=== PATIENT | female | born 1980 | race Caucasian/White ===

== ENCOUNTER 2019-06-25 06:02 | Observation (INO) | payer MEDICAID, OTHER, SELFPAY ==
[2019-06-25 07:29] LABS: Basophils # (Auto) 0.1 K/mm3 (0.0-0.1); Basophils % (Auto) 0.3 % (0.0-1.8); Eosinophils # (Auto) 0.3 K/mm3 (0.0-0.4); Eosinophils % (Auto) 1.9 % (0.0-4.3); Hematocrit 40.9 % (30.3-42.9); Hemoglobin 13.8 gm/dl (10.1-14.3); Lymphocytes # (Auto) 1.2 K/mm3 (1.2-5.4); Lymphocytes % (Auto) 7.3 % (13.4-35.0); Mean Corpuscular HGB Conc 34 % (30-34); Mean Corpuscular Volume 94 fl (79-97); Monocytes # (Auto) 1.2 K/mm3 (0.0-0.8); Monocytes % (Auto) 7.7 % (0.0-7.3); Platelet Count 209 K/mm3 (140-440); Red Blood Count 4.36 M/mm3 (3.65-5.03); Red Cell Distribution Width 13.2 % (13.2-15.2)
[2019-06-25] MEDS ORDERED: SODIUM CHLORIDE 0.9% 1000 ML 1,000 ML IV ONE (07:48)
[2019-06-25] MEDS ORDERED: MORPHINE 4 MG/1 ML INJ IV ONE ×2 (07:48→11:24)
[2019-06-25] MEDS ORDERED: ONDANSETRON 4 MG/2 ML INJ IV ONE (07:48)
[2019-06-25 07:50] LABS: Alanine Aminotransferase 16 units/L (7-56); Albumin 4.2 g/dL (3.9-5); BUN/Creatinine Ratio 16; Blood Urea Nitrogen 8 mg/dL (7-17); Calcium 8.8 mg/dL (8.4-10.2); Hemolysis Index 17
[2019-06-25 08:01] LABS: Bacteria,Urine 1+ /HPF (Negative); Bilirubin,Urine NEG (Negative); Blood,Urine LG (Negative); Color,Urine Amber (Yellow); Mucus,Urine 3+ /HPF; Urobilinogen,Urine < 2.0 mg/dL (<2.0)
--- NOTE | 2019-06-25 08:56 | Emergency Department Report ---
ED Abdominal Pain HPI - General Chief Complaint: Abdominal Pain Stated Complaint: ABDOMINAL PAIN Time Seen by Provider: 06/25/19 07:13 Source: patient Mode of arrival: Ambulatory Limitations: No Limitations - History of Present Illness Initial Comments: This is a 38-year-old female nontoxic, well nourished in appearance, no acute signs of distress presents to the ED with c/o of nausea and vomiting and abdominal pain 1 day. Patient describes vomiting as food content and yellow gastric acid. Patient describes abdominal pain as cramping and aching with level of 8/10 diffuse. Patient denies chest pain, short of breath, fever, hemoptysis, blood in stool, chills, headache, stiff neck, numbness or tingling. Patient denies any diarrhea or constipation. Denies any blood in stool. Patient denies any recent travels. Patient denies any PMH or allergies. MD Complaint: abdominal pain -: days(s) (1) Location: diffuse Radiation: none Migration to: no migration Severity: mild Severity scale (0 -10): 8 Quality: cramping, aching Consistency: constant Improves With: nothing Worsens With: nothing Associated Symptoms: nausea, vomiting. denies: diarrhea, fever, chills, constipation, dysuria, hematemesis, hematochezia, melena, hematuria, anorexia, s yncope - Related Data Previous Rx's Medication Instructions Recorded Last Taken Type Ibuprofen [Motrin 800 MG tab] 800 mg PO Q6H PRN #40 tablet 08/30/15 Unknown Rx oxyCODONE /ACETAMINOPHEN [Percocet 2 tab PO Q4H PRN #50 tablet 08/30/15 Unknown Rx 5/325 mg] Allergies Allergy/AdvReac Type Severity Reaction Status Date / Time No Known Allergies Allergy Verified 08/28/15 10:34 ED Review of Systems ROS: Stated complaint: ABDOMINAL PAIN Other details as noted in HPI Constitutional: denies: chills, fever Eyes: denies: eye pain, eye discharge, vision change ENT: denies: ear pain, throat pain Respiratory: denies: cough, shortness of breath, wheezing Cardiovascular: denies: chest pain, palpitations Endocrine: no symptoms reported Gastrointestinal: abdominal pain, nausea, vomiting. denies: diarrhea Genitourinary: denies: urgency, dysuria, discharge Musculoskeletal: denies: back pain, joint swelling, arthralgia Skin: denies: rash, lesions Neurological: denies: headache, weakness, paresthesias Psychiatric: denies: anxiety, depression Hematological/Lymphatic: denies: easy bleeding, easy bruising ED Past Medical Hx - Past Medical History Previous Medical History?: No Hx Hypertension: No Hx Congestive Heart Failure: No Hx Diabetes: No Hx Deep Vein Thrombosis: No Hx Renal Disease: No Hx Sickle Cell Disease: No Hx Asthma: No Hx COPD: No Hx HIV: No - Surgical History Past Surgical History?: No - Social History Smoking Status: Never Smoker Substance Use Type: None - Medications Home Medications: Home Medications Medication Instructions Recorded Confirmed Last Taken Type Ibuprofen [Motrin 800 MG tab] 800 mg PO Q6H PRN #40 tablet 08/30/15 Unknown Rx oxyCODONE /ACETAMINOPHEN [Percocet 2 tab PO Q4H PRN #50 tablet 08/30/15 Unknown Rx 5/325 mg] ED Physical Exam - General Limitations: No Limitations General appearance: alert, in no apparent distress - Head Head exam: Present: atraumatic, normocephalic - Eye Eye exam: Present: normal appearance - Neck Neck exam: Present: normal inspection, full ROM. Absent: tenderness, meningismus, lymphadenopathy - Respiratory Respiratory exam: Present: normal lung sounds bilaterally. Absent: respiratory distress, wheezes, rales, rhonchi, stridor, chest wall tenderness, accessory muscle use, decreased breath sounds, prolonged expiratory - Cardiovascular Cardiovascular Exam: Present: regular rate, normal rhythm, normal heart sounds. Absent: bradycardia, tachycardia, irregular rhythm, systolic murmur, diastolic murmur, rubs, gallop - GI/Abdominal GI/Abdominal exam: Present: soft, tenderness (diffuse), normal bowel sounds. Absent: distended, guarding, rebound, rigid, diminished bowel sounds - Extremities Exam Extremities exam: Present: normal inspection, full ROM - Back Exam Back exam: Present: normal inspection, full ROM. Absent: tenderness, CVA tenderness (R), CVA tenderness (L), muscle spasm, paraspinal tenderness, vertebral tenderness, rash noted - Neurological Exam Neurological exam: Present: alert, oriented X3, normal gait - Psychiatric Psychiatric exam: Present: normal affect, normal mood - Skin Skin exam: Present: warm, dry, intact, normal color. Absent: rash ED Course Vital Signs 06/25/19 06/25/1906/24/20 06:06 10:26 10:31 Temperature 97.9 F Pulse Rate 62 53 L Respiratory 18 18 Rate Blood Pressure 116/71 109/63 O2 Sat by Pulse 100 100 99 Oximetry - Reevaluation(s) Reevaluation #1: 06/25/19 08:57 Patient is speaking in full sentences with no signs of distress noted. Reevaluation #2: 06/25/19 10:41 Patient is presently comfortably with no acute signs of distress. - Consultations Consultation #1: 06/25/19 11:42 Patient has been consulted with Ro Frye about patient history, physical exam, and labs/CT results and accepts patient to services with admission with hospitalist. ED Medical Decision Making - Lab Data Result diagrams: 06/25/19 06:42 06/25/19 06:42 - Medical Decision Making This is a 38-year-old female that presents with cholecystitis and cholelithiasis. Patient is stable and was examined by me. Labs has been obtained. Patient placed on n.p.o. Resuscitation in the ER with Zosyn has been provided. Patient was consulted with Dr. Hernandez and agrees for admission. Patient is admitted with hospitalist. At time of admission, the patient does not seem toxic or ill in appearance. No acute signs of distress noted. Patient agrees to admission treatment plan of care. No further questions noted by the patient. Critical care attestation.: If time is entered above; I have spent that time in minutes in the direct care of this critically ill patient, excluding procedure time. ED Disposition Clinical Impression: Intractable pain, Acute cholecystitis Nausea & vomiting Qualifiers: Vomiting type: unspecified Vomiting Intractability: non-intractable Qualified Code(s): R11.2 - Nausea with vomiting, unspecified Cholelithiasis Qualifiers: Cholelithiasis location: other site Biliary obstruction: without biliary obstruction Qualified Code(s): K80.80 - Other cholelithiasis without obstruction Disposition: OP ADMIT IP TO THIS HOSP Is pt being admited?: Yes Condition: Stable
--- NOTE | 2019-06-25 09:25 | Cat Scan Report ---
CT of the abdomen and pelvis with contrast INDICATION: Abdominal pain COMPARISON: None FINDINGS: The lung bases are clear. The liver, spleen, pancreas, adrenal glands and right kidney appe ar normal. 1.5 cm low density in the left mid pole is probably a cyst. There is 2.3 cm stone in the n jo of the gallbladder. The gallbladder is distended with gallbladder wall edema likely due to acute cholecystitis. No common duct stone or biliary tree dilation. No fluid or adenopathy CT of the pelvis shows a normal appendix. No uterine or adnexal masses. No pelvic fluid or adenopathy . No hernia or bowel obstruction. Sclerosis of the inferior ischio pubic rami 9. IMPRESSION: Cholelithiasis with probable cholecystitis. Automated exposure control was utilized to diminish radiation dose. Signer Name: Jean Parrish MD Signed: 06/25/2019 9:20 AM Workstation Name: [id number]
[2019-06-25] MEDS ORDERED: PIPERACIL/TAZOBACTA 4.5/NS 100 4.5 GM/100 ML VIAL IV ONE (09:30)
--- NOTE | 2019-06-25 12:26 | Consultation ---
History of Present Illness Consult date: 06/25/19 Reason for consult: gallstones Chief complaint: Abdominal pain - History of present illness History of present illness: 38-year-old female with no past medical history who presents to the emergency room with complaints of sharp abdominal pain localized in the epigastrium and right upper quadrant for the last 3 days. She states the pain started suddenly and has gradually become worse. She does not remember eating anything fried or fatty when the pain first started. She states that she has had a decreased appetite over the last 3 days secondary to the pain. She has never had pain like this in the past. No fevers, chills, chest pain, shortness of breath, nausea, vomiting. Past History Past Medical History: No medical history Past Surgical History: (x5), Other (Tubal ligation) Social history: no significant social history Family history: no significant family history Medications and Allergies Allergies Allergy/AdvReac Type Severity Reaction Status Date / Time No Known Allergies Allergy Verified 08/28/15 10:34 Home Medications Medication Instructions Recorded Confirmed Last Taken Type Ibuprofen [Motrin 800 MG tab] 800 mg PO Q6H PRN #40 tablet 08/30/15 Unknown Rx oxyCODONE /ACETAMINOPHEN [Percocet 2 tab PO Q4H PRN #50 tablet 08/30/15 Unknown Rx 5/325 mg] Review of Systems All systems: negative (10 point review systems was performed and negative except for that listed in HPI) Exam Vital Signs Temp Pulse Resp BP Pulse Ox 97.9 F 62 18 116/71 100 06/25/19 06:06 06/25/19 06:06 06/25/19 06:06 06/25/19 06:06 06/25/19 06:06 Narrative exam: Gen.: Awake, alert, oriented 3. No apparent distress ENT: No scleral icterus or conjunctival pallor CV: S1, S2 present Respiratory: No audible wheezes Abdomen: Soft, nondistended, positive tenderness to palpation in the epigastrium, RUQ. + Voluntary guarding. No rebound, rigidity. Extremities: No clubbing, cyanosis, edema Results - Labs 06/25/19 06:42 06/25/19 06:42 Abnormal lab results 06/25/19 06/25/19 06/25/19 Range/Units 06:42 06:42 Unknown WBC 16.2 H (4.5-11.0) K/mm3 Lymph % (Auto) 7.3 L (13.4-35.0) % [place] % (Auto) 7.7 H (0.0-7.3) % [place] # 1.2 H (0.0-0.8) K/mm3 Seg Neutrophils % 82.8 H (40.0-70.0) % Seg Neutrophils # 13.4 H (1.8-7.7) K/mm3 Sodium 136 L (137-145) mmol/L Chloride 97.8 L (98-107) mmol/L Creatinine 0.5 L (0.7-1.2) mg/dL Glucose 130 H (65-100) mg/dL Ur Specific [place] 1.038 H (1.003-1.030) Urine WBC (Auto) 9.0 H (0.0-6.0) /HPF Diabetes panel 06/25/19 Range/Units 06:42 Sodium 136 L (137-145) mmol/L Potassium 4.1 (3.6-5.0) mmol/L Chloride 97.8 L (98-107) mmol/L Carbon Dioxide 24 (22-30) mmol/L BUN 8 (7-17) mg/dL Creatinine 0.5 L (0.7-1.2) mg/dL Glucose 130 H (65-100) mg/dL Calcium 8.8 (8.4-10.2) mg/dL AST 19 (5-40) units/L ALT 16 (7-56) units/L Alkaline Phosphatase 60 (35-129) units/L Total Protein 7.4 (6.3-8.2) g/dL Albumin 4.2 (3.9-5) g/dL Calcium panel 06/25/19 Range/Units 06:42 Calcium 8.8 (8.4-10.2) mg/dL Albumin 4.2 (3.9-5) g/dL Pituitary panel 06/25/19 Range/Units 06:42 Sodium 136 L (137-145) mmol/L Potassium 4.1 (3.6-5.0) mmol/L Chloride 97.8 L (98-107) mmol/L Carbon Dioxide 24 (22-30) mmol/L BUN 8 (7-17) mg/dL Creatinine 0.5 L (0.7-1.2) mg/dL Glucose 130 H (65-100) mg/dL Calcium 8.8 (8.4-10.2) mg/dL Adrenal panel 06/25/19 Range/Units 06:42 Sodium 136 L (137-145) mmol/L Potassium 4.1 (3.6-5.0) mmol/L Chloride 97.8 L (98-107) mmol/L Carbon Dioxide 24 (22-30) mmol/L BUN 8 (7-17) mg/dL Creatinine 0.5 L (0.7-1.2) mg/dL Glucose 130 H (65-100) mg/dL Calcium 8.8 (8.4-10.2) mg/dL Total Bilirubin 0.40 (0.1-1.2) mg/dL AST 19 (5-40) units/L ALT 16 (7-56) units/L Alkaline Phosphatase 60 (35-129) units/L Total Protein 7.4 (6.3-8.2) g/dL Albumin 4.2 (3.9-5) g/dL - Imaging CT scan - abdomen: report reviewed, image reviewed CT scan - pelvis: report reviewed, image reviewed Assessment and Plan 38-year-old female with abdominal pain, possible acute cholecystitis on CT scan PLAN: 1. Admit to hospitalist service 2. NPO 3. IVF 4. IV abx - zosyn 5. prn pain and nausea control 6. ABD u/s 7. Will reassess patient in am. Further recs pending clinical course, lab and imaging results Thank you, please call with questions
[2019-06-25] MEDS ORDERED: ACETAMINOPHEN 325 MG TAB PO PRN (13:18)
[2019-06-25] MEDS ORDERED: ONDANSETRON 4 MG/2 ML INJ IV PRN (13:18)
--- NOTE | 2019-06-25 13:20 | History and Physical Report ---
History of Present Illness Chief complaint: My stomach hurts History of present illness: 38 YO Female with NO PMH presents to ED for evaluation. Patient states that she had experienced abdominal pain over the last 3 days with worsening symptoms over the past 1 day. Patient states that pain is currently 78/10, constant, crampy in nature, diffuse, associated with nausea, and multiple episodes of vomiting. Patient transported to [facility] for further evaluation and care. Patient seen and evaluated in the emergency department. Lab and imaging studies reviewed. Patient underwent CT scan of the abdomen and pelvis and was found to have evidence of acute cholecystitis as well as laboratory markers consistent with systemic inflammatory response syndrome, urinary tract infection, and hyponatremia. Patient placed in observation status and admitted to surgical floor. Surgery team consulted in ED. Patient was treated with bowel rest, IV fluid resuscitation therapy, and IV antibiotic therapy. Patient pending surg ical intervention as per surgical team. Patient denies fever, chills, chest pain, palpitation, productive cough, skin rash, ingestion of food/water from new or different sources, or known ill contacts. No prior admission for review. No medication listed at time of admission for reconciliation. PUI?: No Past History Past Medical History: No medical history Past Surgical History: (x5), Other (Tubal ligation) Social history: no significant social history Family history: no significant family history Medications and Allergies Allergies Allergy/AdvReac Type Severity Reaction Status Date / Time No Known Allergies Allergy Verified 08/28/15 10:34 Home Medications Medication Instructions Recorded Confirmed Last Taken Type Ibuprofen [Motrin 800 MG tab] 800 mg PO Q6H PRN #40 tablet 08/30/15 06/25/19 Unknown Rx oxyCODONE /ACETAMINOPHEN [Percocet 2 tab PO Q4H PRN #50 tablet 08/30/15 06/25/19 Unknown Rx 5/325 mg] Active Meds: Active Medications Acetaminophen (Tylenol) 650 mg PO Q4H PRN PRN Reason: Pain MILD(1-3)/Fever >100.5/[place] Sodium Chloride (Nacl 0.9% 1000 Ml) 1,000 mls @ 100 mls/hr IV DIRECT DEBO Piperacillin Sod/Tazobactam Sod (Zosyn/Ns 4.5gm/100ml) 4.5 gm in 100 mls @ 200 mls/hr IV Q8HR DEBO; Protocol Morphine Sulfate (Morphine) 2 mg IV Q4H PRN PRN Reason: Pain, Moderate (4-6) Ondansetron HCl (Zofran) 4 mg IV Q8H PRN PRN Reason: Nausea And Vomiting Sodium Chloride (Sodium Chloride Flush Syringe 10 Ml) 10 ml IV BID DEBO Sodium Chloride (Sodium Chloride Flush Syringe 10 Ml) 10 ml IV PRN PRN PRN Reason: LINE FLUSH Review of Systems Constitutional: no weight loss, no weight gain, no fever, no chills Ears, nose, mouth and throat: no ear pain, no ear discharge, no tinnitis, no decreased hearing, no nose pain Breasts: no change in shape, no swelling, no mass Cardiovascular: no chest pain, no edema, no syncope, no lightheadedness Respiratory: no cough, no cough with sputum, no excessive sputum, no hemoptysis, no shortness of breath Gastrointestinal: abdominal pain, nausea, vomiting, no constipation, no change in bowel habits, no hematemesis, no melena, no hematochezia Genitourinary Female: no pelvic pain, no flank pain, no menorrhagia, no dysuria, no urinary frequency, no urgency Rectal: no pain, no incontinence, no bleeding Musculoskeletal: no neck stiffness, no neck pain, no shooting arm pain, no arm numbness/tingling, no low back pain, no shooting leg pain Integumentary: no rash, no pruritis, no redness, no sores, no wounds Neurological: no transient paralysis, no paralysis, no weakness, no parathesias, no numbness, no tingling, no seizures Psychiatric: no memory loss, no change in sleep habits, no sleep disturbances, no insomnia, no hypersomnia, no change in appetite Endocrine: no cold intolerance, no heat intolerance, no polyphagia, no excessive thirst, no polydipsia, no polyuria Hematologic/Lymphatic: no easy bruising, no easy bleeding, no lymphadenopathy Allergic/Immunologic: no urticaria, no allergic rhinitis, no wheezing, no persistent infections, no angioedema Exam - Constitutional Vitals: Temp Pulse Resp BP Pulse Ox 97.9 F 53 L 18 109/63 99 06/25/19 06:06 06/25/19 10:26 06/25/19 10:31 06/25/19 10:26 06/25/19 10:31 General appearance: Present: mild distress - EENT Eyes: Present: PERRL ENT: hearing intact, clear oral mucosa - Neck Neck: Present: supple, normal ROM - Respiratory Respiratory effort: normal Respiratory: bilateral: CTA - Cardiovascular Heart Sounds: Present: S1 & S2. Absent: rub, click - Extremities Extremities: pulses symmetrical, No edema Peripheral Pulses: within normal limits - Abdominal General gastrointestinal: Present: soft, tender, non-distended, normal bowel sounds. Absent: hypoactive bowel sounds, mass, hernia Female genitourinary: Present: normal - Integumentary Integumentary: Present: clear, warm, dry - Musculoskeletal Musculoskeletal: gait normal, strength equal bilaterally - Psychiatric Psychiatric: appropriate mood/affect, intact judgment & insight - Neurologic Neurologic: CNII-XII intact, moves all extremities Results - Labs CBC & Chem 7: 06/25/19 06:42 06/25/19 06:42 Labs: Abnormal lab results 06/25/19 06/25/19 06/25/19 Range/Units 06:42 06:42 Unknown WBC 16.2 H (4.5-11.0) K/mm3 Lymph % (Auto) 7.3 L (13.4-35.0) % [place] % (Auto) 7.7 H (0.0-7.3) % [place] # 1.2 H (0.0-0.8) K/mm3 Seg Neutrophils % 82.8 H (40.0-70.0) % Seg Neutrophils # 13.4 H (1.8-7.7) K/mm3 Sodium 136 L (137-145) mmol/L Chloride 97.8 L (98-107) mmol/L Creatinine 0.5 L (0.7-1.2) mg/dL Glucose 130 H (65-100) mg/dL Ur Specific [place] 1.038 H (1.003-1.030) Urine WBC (Auto) 9.0 H (0.0-6.0) /HPF Assessment and Plan - Patient Problems (1) Acute cholecystitis Current Visit: Yes Status: Acute Plan to address problem: CT scan abdomen and pelvis, abdominal ultrasound, surgery team consulted in the emergency department, IV fluid resuscitation therapy, bowel rest, serial abdominal exam, surgical intervention as per surgical team. (2) Systemic inflammatory response syndrome Current Visit: Yes Status: Acute Plan to address problem: CBC, CMP, IV antibiotic therapy, chest x-ray, urinalysis, IV fluid resuscitation therapy, supportive care. (3) Urinary tract infection Current Visit: Yes Status: Acute Qualifiers: Encounter type: initial encounter Plan to address problem: IV antibiotic therapy, supportive care, CBC, urinalysis. (4) Hyponatremia Current Visit: Yes Status: Acute Plan to address problem: IV fluid resuscitation therapy, repeat BMP in a.m. (5) DVT prophylaxis Current Visit: Yes Status: Acute Plan to address problem: SCD to bilateral lower extremities while in bed, patient is ambulatory.
[2019-06-25] MEDS ORDERED: metroNIDAZOLE/NS 500 MG/100 ML 500 MG/100 ML BAG IV ONE (13:46)
[2019-06-25] MEDS: metroNIDAZOLE/NS 500 MG/100 ML 500 MG/100 ML BAG IV SCH ×2 (13:50→21:31)
[2019-06-25] MEDS ORDERED: SODIUM CHLORIDE 0.9% 1000 ML 1,000 ML ONE (13:52)
[2019-06-25] MEDS: SODIUM CHLORIDE 0.9% 1000 ML 1,000 ML IV SCH ×2 (13:53→23:38)
--- NOTE | 2019-06-25 14:18 | Ultrasound Report ---
ULTRASOUND ABDOMEN, COMPLETE INDICATION: Cholecystitis. COMPARISON: CT scan dated 06/25/2019. FINDINGS: Pancreas: Imaged portions are unremarkable.. Abdominal Aorta: Normal in diameter. IVC: No significant abnormality. Liver: No significant abnormality. Gallbladder: Gallbladder wall is thickened and there appears to be gallbladder wall edema. The appear ance is suspicious for cholecystitis.. There is sludge in the lumen of the gallbladder Bile ducts: Mildly dilated. Common bile duct measures 8 mm. Kidneys: Right: No significant abnormality. Left : There is a 1.5 cm cyst in the mid left kidney. Spleen: No significant abnormality. Free fluid: None. Additional Findings: None. IMPRESSION: 1. There is gallbladder wall thickening and apparent edema. This is suspicious for cholecystitis.. Th is correlates to the finding on the CT scan performed earlier today. Common bile duct is dilated evin uring 8 mm. Signer Name: Efe Gutiérrez MD Signed: 06/25/2019 2:13 PM Workstation Name: [id number]
[2019-06-25] MEDS: PIPERACIL/TAZOBACTA 4.5/NS 100 4.5 GM/100 ML VIAL IV SCH ×2 (17:46→23:45)
[2019-06-25] MEDS: MORPHINE 2 MG/1 ML INJ IV PRN (18:35)
[2019-06-26] MEDS: MORPHINE 2 MG/1 ML INJ IV PRN ×2 (03:45→08:21)
[2019-06-26 05:09] LABS: Hemoglobin 13.4 gm/dl (10.1-14.3); Mean Corpuscular HGB Conc 34 % (30-34); Mean Corpuscular Volume 94 fl (79-97); Platelet Count 198 K/mm3 (140-440); Red Blood Count 4.27 M/mm3 (3.65-5.03); Red Cell Distribution Width 13.1 % (13.2-15.2)
[2019-06-26] MEDS: metroNIDAZOLE/NS 500 MG/100 ML 500 MG/100 ML BAG IV SCH (05:35)
[2019-06-26 05:40] LABS: Alanine Aminotransferase 54 units/L (7-56); Albumin 3.4 g/dL (3.9-5)
[2019-06-26 05:51] LABS: Bilirubin,Direct < 0.2 mg/dL (0-0.2)
[2019-06-26] MEDS: PIPERACIL/TAZOBACTA 4.5/NS 100 4.5 GM/100 ML VIAL IV SCH ×3 (08:21→21:04)
--- NOTE | 2019-06-26 09:19 | Progress Note ---
Assessment and Plan Assessment and plan: Acute cholecystitis. Continue IV antibiotics. Surgery consultation pending. CT scan reveals cholelithiasis with probable cholecystitis. Abdominal ultrasound also suggestive of cholecystitis. UTI. Continue IV antibiotics and follow-up blood/urine cultures. Sepsis. Etiology secondary to above. Follow-up blood cultures. Continue IV antibiotics. Hyponatremia. Continue IV fluid hydration and follow-up BMP. DVT prophylaxis. Continue SCDs History Interval history: No new issues overnight. PUI?: No Hospitalist Physical - Constitutional Vitals: Temp Pulse Resp BP Pulse Ox 100.7 F H 104 H 20 100/63 95 06/26/19 07:24 06/26/19 07:24 06/26/19 07:24 06/26/19 07:24 06/26/19 07:24 General appearance: Present: mild distress - EENT Eyes: Present: PERRL, EOM intact ENT: hearing intact, clear oral mucosa, dentition normal - Neck Neck: Present: supple, normal ROM - Respiratory Respiratory effort: normal Respiratory: bilateral: CTA - Cardiovascular Rhythm: regular Heart Sounds: Present: S1 & S2. Absent: gallop, rub - Extremities Extremities: no ischemia, No edema, Full ROM - Abdominal General gastrointestinal: soft, non-tender, non-distended, normal bowel sounds - Integumentary Integumentary: Present: clear, warm, dry - Neurologic Neurologic: CNII-XII intact, moves all extremities Results - Labs CBC & Chem 7: 06/26/19 04:10 06/25/19 06:42 Labs: Laboratory Last Values WBC 22.2 K/mm3 (4.5-11.0) H 06/26/19 04:10 RBC 4.27 M/mm3 (3.65-5.03) 06/26/19 04:10 Hgb 13.4 gm/dl (10.1-14.3) 06/26/19 04:10 Hct 40.0 % (30.3-42.9) 06/26/19 04:10 MCV 94 fl (79-97) 06/26/19 04:10 MCH 31 pg (28-32) 06/26/19 04:10 MCHC 34 % (30-34) 06/26/19 04:10 RDW 13.1 % (13.2-15.2) L 06/26/19 04:10 Plt Count 198 K/mm3 (140-440) 06/26/19 04:10 Lymph % (Auto) 7.3 % (13.4-35.0) L 06/25/19 06:42 [place] % (Auto) 7.7 % (0.0-7.3) H 06/25/19 06:42 Eos % (Auto) 1.9 % (0.0-4.3) 06/25/19 06:42 Baso % (Auto) 0.3 % (0.0-1.8) 06/25/19 06:42 Lymph # 1.2 K/mm3 (1.2-5.4) 06/25/19 06:42 [place] # 1.2 K/mm3 (0.0-0.8) H 06/25/19 06:42 Eos # 0.3 K/mm3 (0.0-0.4) 06/25/19 06:42 Baso # 0.1 K/mm3 (0.0-0.1) 06/25/19 06:42 Seg Neutrophils % 82.8 % (40.0-70.0) H 06/25/19 06:42 Seg Neutrophils # 13.4 K/mm3 (1.8-7.7) H 06/25/19 06:42 Sodium 136 mmol/L (137-145) L 06/25/19 06:42 Potassium 4.1 mmol/L (3.6-5.0) 06/25/19 06:42 Chloride 97.8 mmol/L (98-107) L 06/25/19 06:42 Carbon Dioxide 24 mmol/L (22-30) 06/25/19 06:42 Anion Gap 18 mmol/L 06/25/19 06:42 BUN 8 mg/dL (7-17) 06/25/19 06:42 Creatinine 0.5 mg/dL (0.7-1.2) L 06/25/19 06:42 Estimated GFR > 60 ml/min 06/25/19 06:42 BUN/Creatinine Ratio 16 % 06/25/19 06:42 Glucose 130 mg/dL (65-100) H 06/25/19 06:42 Calcium 8.8 mg/dL (8.4-10.2) 06/25/19 06:42 Total Bilirubin 0.50 mg/dL (0.1-1.2) 06/26/19 04:10 Direct Bilirubin < 0.2 mg/dL (0-0.2) 06/26/19 04:10 Indirect Bilirubin 0.3 mg/dL 06/26/19 04:10 AST 39 units/L (5-40) 06/26/19 04:10 ALT 54 units/L (7-56) 06/26/19 04:10 Alkaline Phosphatase 56 units/L (35-129) 06/26/19 04:10 Total Protein 6.3 g/dL (6.3-8.2) 06/26/19 04:10 Albumin 3.4 g/dL (3.9-5) L 06/26/19 04:10 Albumin/Globulin Ratio 1.2 % 06/26/19 04:10 Lipase 26 units/L (13-60) 06/25/19 06:42 HCG, Qual Negative (Negative) 06/25/19 06:42 Urine Color Jessika (Yellow) 06/25/19 Unknown Urine Turbidity Slightly-cloudy (Clear) 06/25/19 Unknown Urine pH 5.0 (5.0-7.0) 06/25/19 Unknown Ur Specific [place] 1.038 (1.003-1.030) H 06/25/19 Unknown Urine Protein 100 mg/dl mg/dL (Negative) 06/25/19 Unknown Urine Glucose (UA) Neg mg/dL (Negative) 06/25/19 Unknown Urine Ketones 80 mg/dL (Negative) 06/25/19 Unknown Urine Blood Lg (Negative) 06/25/19 Unknown Urine Nitrite Neg (Negative) 06/25/19 Unknown Urine Bilirubin Neg (Negative) 06/25/19 Unknown Urine Urobilinogen < 2.0 mg/dL (<2.0) 06/25/19 Unknown Ur Leukocyte Esterase Sm (Negative) 06/25/19 Unknown Urine WBC (Auto) 9.0 /HPF (0.0-6.0) H 06/25/19 Unknown Urine RBC (Auto) 6.0 /HPF (0.0-6.0) 06/25/19 Unknown U Epithel Cells (Auto) 8.0 /HPF (0-13.0) 06/25/19 Unknown Urine Bacteria (Auto) 1+ /HPF (Negative) 06/25/19 Unknown Urine Mucus 3+ /HPF 04/14/20 Unknown Kaiser/IV: IV Catheter Type [Left Hand] Peripheral IV Active Medications - Current Medications Current Medications: Generic Name Dose Route Start Last Admin Trade Name Viviane PRN Reason Stop Dose Admin Acetaminophen 650 mg 06/25/19 13:18 Tylenol PO Q4H PRN Pain MILD(1-3)/Fever >100.5/KOHLER Sodium Chloride 1,000 mls @ 100 mls/hr 06/25/19 12:30 06/25/19 23:38 Nacl 0.9% 1000 Ml IV 100 mls/hr DIRECT DEBO Administration Piperacillin Sod/Tazobactam Sod 4.5 gm in 100 mls @ 200 mls/hr 06/25/19 17:30 06/26/19 08:21 Zosyn/Ns 4.5gm/100ml IV 200 mls/hr Q8HR DEBO Administration Protocol Metronidazole 500 mg in 100 mls @ 100 mls/hr 06/25/19 13:26 06/26/19 05:35 Flagyl 500 Mg/100 Ml IV 100 mls/hr Q8H DEBO Administration Protocol Morphine Sulfate 2 mg 06/25/19 13:18 06/26/19 08:21 Morphine IV 2 mg Q4H PRN Administration Pain, Moderate (4-6) Ondansetron HCl 4 mg 06/25/19 13:18 Zofran IV Q8H PRN Nausea And Vomiting Sodium Chloride 10 ml 06/25/19 22:00 06/26/19 09:15 Sodium Chloride Flush Syringe 10 Ml IV 10 ml BID DEBO Administration Sodium Chloride 10 ml 06/25/19 13:18 06/26/19 03:46 Sodium Chloride Flush Syringe 10 Ml IV 10 ml PRN PRN Administration LINE FLUSH
--- NOTE | 2019-06-26 09:37 | Anesthesia Day of Surgery ---
Anesthesia Day of Surgery - Day of Surgery Patient Examined: Yes Patient H&P Reviewed: Yes Patient is NPO: Yes
--- NOTE | 2019-06-26 09:37 | Anesthesia Consultation ---
Anesthesia Consult and Med Hx Date of service: 06/26/19 - Airway Anesthetic Teeth Evaluation: Good ROM Head & Neck: Adequate Mental/Hyoid Distance: Adequate Mallampati Class: Class II Intubation Access Assessment: Probably Good - Pre-Operative Health Status ASA Pre-Surgery Classification: ASA1, Emergency Proposed Anesthetic Plan: General - Pulmonary Hx Asthma: No COPD: No Hx Pneumonia: No - Cardiovascular System Hx Hypertension: No - Central Nervous System Hx Psychiatric Problems: (Migranes) - Endocrine Hx Renal Disease: No Hx End Stage Renal Disease: No Hx Liver Disease: Yes (acute cholecystitis) Hx Hypothyroidism: No Hx Hyperthyroidism: No - Hematic Hx Anemia: Yes Hx Sickle Cell Disease: No - Other Systems Hx Alcohol Use: No
--- NOTE | 2019-06-26 09:37 | Progress Note ---
Assessment and Plan 38-year-old female with acute cholecystitis Abd U/s reviewed LFTs withing normal limits Patient with persistent pain, now febrile, and WBC trending upwards PLAN: 1. NPO 2. IVF 3. continue IV abx 4. prn pain and nausea control 5. Recommend cholecystectomy. Added to OR schedule for today. I discussed all risks, benefits, alternatives to surgery with the patient using the [employer] [place] foreign languages professor. All questions were answered and consent obtained. I advised the patient to call her who is her next of kin to notify him that she is having surgery this morning. Thank you, please call with questions Subjective Date of service: 06/26/19 Narrative: Patient seen and examined. She complains of right upper quadrant abdominal pain. T-max 100.7 this morning. No nausea, vomiting. Objective Vital Signs - 12hr 06/26/19 06/26/19 06/26/19 00:30 04:02 07:24 Temperature 99.3 F 98.0 F 100.7 F H Pulse Rate 71 86 104 H Respiratory 18 18 20 Rate Blood Pressure 124/62 100/53 100/63 O2 Sat by Pulse 98 97 95 Oximetry - General physical appearance Narrative Exam: Gen.: Awake, alert, oriented 3. Appears to be uncomfortable ENT: No scleral icterus or conjunctival pallor CV: S1, S2 present Respiratory: No audible wheezes Abdomen: Soft, nondistended, positive tenderness to palpation in the right upper quadrant. No rebound, rigidity, guarding Extremities: No clubbing, cyanosis, edema - Labs 06/26/19 04:10 06/25/19 06:42 Diabetes panel 06/26/19 Range/Units 04:10 AST 39 (5-40) units/L ALT 54 (7-56) units/L Alkaline Phosphatase 56 (35-129) units/L Total Protein 6.3 (6.3-8.2) g/dL Albumin 3.4 L (3.9-5) g/dL Calcium panel 06/26/19 Range/Units 04:10 Albumin 3.4 L (3.9-5) g/dL Adrenal panel 06/26/19 Range/Units 04:10 Total Bilirubin 0.50 (0.1-1.2) mg/dL AST 39 (5-40) units/L ALT 54 (7-56) units/L Alkaline Phosphatase 56 (35-129) units/L Total Protein 6.3 (6.3-8.2) g/dL Albumin 3.4 L (3.9-5) g/dL
[2019-06-26] MEDS ORDERED: FAMOTIDINE 20 MG/2 ML INJ IV NR (10:00)
[2019-06-26] MEDS ORDERED: MIDAZOLAM 2 MG/2 ML INJ IV NR (10:00)
[2019-06-26] MEDS ORDERED: propofoL 200 MG/20 ML VIAL IV ONE (10:15)
[2019-06-26] MEDS ORDERED: LIDOCAINE MPF (2%) 20 MG/1 ML VIAL 5 ML ONE (10:15)
[2019-06-26] MEDS ORDERED: SUCCINYLCHOLINE CHLORIDE 200 MG/10 ML INJ MDV ONE (10:15)
[2019-06-26] MEDS ORDERED: ROCURONIUM 50 MG/5 ML INJ IV ONE (10:15)
[2019-06-26] MEDS ORDERED: HYDROmorphone 1 MG/1 ML INJ ONE (10:15)
[2019-06-26] MEDS ORDERED: BUPIVACAINE/PF (0.5%) 5 MG/1 ML 30 ML VIAL INFILTRATI ONE ×2 (10:23→12:08)
[2019-06-26] MEDS ORDERED: LIDOCAINE (1%) 10 MG/1 ML VIAL 20 ML MDV ONE (10:23)
[2019-06-26] MEDS ORDERED: HYDROmorphone 1 MG/1 ML INJ IV PRN (10:24)
[2019-06-26] MEDS ORDERED: SCOPOLAMINE TRANSDERMAL PATCH 72 HR TD NR (11:00)
[2019-06-26] MEDS ORDERED: PHENYLEPHRINE/NS 1,000 MCG/10 ML SYRINGE (OR USE) IV ONE (11:34)
[2019-06-26] MEDS ORDERED: LIDOCAINE (1%) 10 MG/1 ML VIAL 20 ML MDV INFILTRATI ONE (12:08)
[2019-06-26] MEDS ORDERED: SODIUM CHLORIDE 0.9% IRRIG SOLN 2000 ML IR ONE (12:09)
[2019-06-26] MEDS ORDERED: SODIUM CHLORIDE 0.9% IRR 1,500 ML BOTTLE IR ONE (12:09)
[2019-06-26] MEDS ORDERED: SODIUM CHLORIDE 0.9% 1000 ML 1,000 ML ONE (13:20)
[2019-06-26] MEDS ORDERED: ONDANSETRON 4 MG/2 ML INJ ONE (13:26)
[2019-06-26] MEDS ORDERED: oxyCODONE /ACETAMINOPHEN 5-325MG TAB PO PRN (13:28)
--- NOTE | 2019-06-26 13:28 | Post Operative Note ---
Pre-op diagnosis: acute calculus cholecystitis Post-op diagnosis: same Findings: Distended, thickened gallbladder with pericholecystic fluid. Stone in neck of gallbladder. Hydrops of gallbladder Procedure: laparoscopic cholecystectomy Anesthesia: NAYLA, local Surgeon: CAROL JENNINGS Volunteer Patient Representative: OLIMPIA PANTOJA Estimated blood loss: 50-100ml Pathology: list (gallbladder) Specimen disposition: to lab Condition: stable Disposition: PACU
--- NOTE | 2019-06-26 14:08 | Operative Report ---
Operative Report Operative Report: Date: 06/26/19 13:27 Initialization Date: 06/26/19 13:27 Pre-op diagnosis: acute calculus cholecystitis Post-op diagnosis: same Findings: Distended, thickened gallbladder with pericholecystic fluid. Stone in neck of gallbladder. Hydrops of gallbladder Procedure: laparoscopic cholecystectomy Anesthesia: NAYLA local Surgeon: CAROL JENNINGS Psychiatric Cns: OLIMPIA PANTOJA Estimated blood loss: 50-100ml Pathology: list (gallbladder) Specimen disposition: to lab Condition: stable Disposition: PACU HPI an indication: 38-year-old female who presented to the hospital with complaints of right upper quadrant abdominal pain. She was found to have acute cholecystitis on imaging consisting of a CAT scan of abdomen and pelvis and a right upper quadrant ultrasound. The patient was admitted and started on IV antibiotics, IV fluids and kept n.p.o. Labs on the following day showed an increase in leukocytosis and normal LFTs. It was recommended that we proceed with cholecystectomy. All risks, benefits, alternatives to surgery were discussed with the patient using a interpreter translator using the [employer] language line. All questions were answered and consent obtained. Procedure in detail: The patient was identified in the preoperative area and taken back to the operating room, placed on the operating room table in supine position. After anesthesia was induced, the abdomen was prepped and draped in usual sterile fashion and timeout was performed. Local anesthetic was infiltrated into all of the skin incision sites. A arleth incision was made in t he left upper quadrant at Judge's point through which a Veress needle was inserted. The Veress needle positioning was confirmed using the saline drop test and the abdomen insufflated to 15 mmHg. The air seal PETER E VAC tubing was used throughout the case. Once the abdomen was insufflated, a 5 mm supraumbilical incision was made through which a 5 mm Optiview trocar was inserted. The abdomen was inspected and there was no underlying injury to any of the abdominal structures. The Veress needle was identified and removed. An additional 12 mm subxyphoid port, and 2, 5mm RUQ ports were then placed under direct visualization. The patient was then placed into reverse Trendelberg and tilted to the left. The gallbladder was visualized was mostly obscured by omental adhesions to the gallbladder. The omental adhesions were dissected bluntly and the full gallbladder visualized. The gallbladder was extremely distended and inflamed. The gallbladder was decompressed using a laparoscopic needle and syringe. Approximately 45 cc of clear bile was aspirated from the gallbladder, indicating hydrops. The gallbladder was then grasped and retracted cephalad and above the liver. The cystic duct and artery were then carefully dissected and the critical view obtained. A stone was present at the neck of the gallbladder. The cystic duct and artery were the only two structures seen entering the gallbladder. Three clips were then placed on the proximal aspect of the cystic duct and one clip distally, and 2 clips on the cystic artery proximally and one distal. The cystic duct and cystic artery were then transected in between the clips using EndoShears. The gallbladder was dissected off the liver bed using hook electrocautery. The gallbladder was placed into a Endo Catch bag. The gallbladder fossa was then inspected and there was no identifiable bleeding or bile leakage. Hemostasis was ensured using electrocautery. The clips on the cystic duct and artery were visualized and intact. The patient was then placed into neutral position and Morison's pouch was irrigated and the irrigant returned clear. Christoph powder was sprayed onto the liver bed. The abdomen was then desufflated by placing the air seal on 5 mmHg pressure remainder of the air was evacuated via the blue port. The remaining ports were removed. The gallbladder was removed via the 12 mm port. The subcutaneous tissue was irrigated and the 12 mm port fascia was closed with a figure of 8, 0 Vicryl stitch. Skin incisions were closed with 4-0 Monocryl subcuticular stitches and skin glue. All skin incisions were once again infiltrated with local anesthetic. At the end case all sponge, instrument, sharp counts were correct 2. The patient was awoken from anesthesia, extubated, taken to PACU in stable co ndition.
[2019-06-26] MEDS: SODIUM CHLORIDE 0.9% 1000 ML 1,000 ML IV SCH (19:52)
[2019-06-27 05:19] LABS: Basophils % (Auto) 0.2 % (0.0-1.8); Eosinophils % (Auto) 0.2 % (0.0-4.3); Hematocrit 35.5 % (30.3-42.9); Hemoglobin 11.8 gm/dl (10.1-14.3); Lymphocytes # (Auto) 1.4 K/mm3 (1.2-5.4); Lymphocytes % (Auto) 8.9 % (13.4-35.0); Mean Corpuscular HGB Conc 33 % (30-34); Mean Corpuscular Volume 95 fl (79-97); Monocytes # (Auto) 0.9 K/mm3 (0.0-0.8); Monocytes % (Auto) 5.7 % (0.0-7.3); Platelet Count 186 K/mm3 (140-440); Red Blood Count 3.75 M/mm3 (3.65-5.03); Red Cell Distribution Width 13.3 % (13.2-15.2)
[2019-06-27] MEDS: PIPERACIL/TAZOBACTA 4.5/NS 100 4.5 GM/100 ML VIAL IV SCH (05:30)
[2019-06-27 05:39] LABS: Alanine Aminotransferase 59 units/L (7-56); Albumin 2.7 g/dL (3.9-5); BUN/Creatinine Ratio 16; Blood Urea Nitrogen 8 mg/dL (7-17); Calcium 7.5 mg/dL (8.4-10.2); Hemolysis Index 8
[2019-06-27] MEDS: POTASSIUM CHLORIDE ER 20 MEQ TAB PO SCH ×2 (06:01→09:38)
[2019-06-27] MEDS: MORPHINE 2 MG/1 ML INJ IV PRN ×2 (06:06→09:38)
--- NOTE | 2019-06-27 09:16 | Discharge Summary ---
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 She states the pain started suddenly and has gradually become worse which prompted her visit to the emergency room. The patient was admitted with diagnosis of sepsis secondary to acute cholecystitis and UTI. The patient was treated with IV antibiotics and surgery was consulted. CT scan revealed cholelithiasis with probable cholecystitis. Abdominal ultrasound also suggestive of cholecystitis. Surgery evaluated the patient and performed a laparoscopic cholecystectomy. Findings included Distended, thickened gallbladder with pericholecystic fluid. Stone in neck of gallbladder. Hydrops of gallbladder. The patient tolerated her diet postoperatively and only had mild complication of hypokalemia prior to discharge. Potassium was repleted and patient is felt to have received maximal hospital benefit for discharge. Dedicated discharge time 35 minutes. Disposition: DC-01 TO HOME OR SELFCARE Time spent for discharge: 35 - Discharge Diagnoses (1) Sepsis Status: Acute (2) Hypokalemia Status: Acute (3) Acute cholecystitis Status: Acute (4) Cholelithiasis Status: Acute Qualifiers: Cholelithiasis location: other site Biliary obstruction: without biliary obstruction Qualified Code(s): K80.80 - Other cholelithiasis without obstruction (5) Intractable pain Status: Acute (6) Nausea & vomiting Status: Acute Qualifiers: Vomiting type: unspecified Vomiting Intractability: non-intractable Qualified Code(s): R11.2 - Nausea with vomiting, unspecified (7) Urinary tract infection Status: Acute Qualifiers: Encounter type: initial encounter Core Measure Documentation - Palliative Care Palliative Care/ Comfort Measures: Not Applicable - Core Measures Any of the following diagnoses?: none Exam - Constitutional Vitals: Temp Pulse Resp BP Pulse Ox 99.5 F 82 20 106/63 94 06/27/19 07:53 06/27/19 07:53 06/27/19 07:53 06/27/19 07:53 06/27/19 07:53 General appearance: Present: no acute distress, well-nourished - EENT Eyes: Present: PERRL ENT: hearing intact, clear oral mucosa - Neck Neck: Present: supple, normal ROM - Respiratory Respiratory effort: normal Respiratory: bilateral: CTA - Cardiovascular Heart Sounds: Present: S1 & S2. Absent: rub, click - Extremities Extremities: pulses symmetrical, No edema Peripheral Pulses: within normal limits - Abdominal General gastrointestinal: Present: soft, non-tender, non-distended, normal bowel sounds Female genitourinary: Present: normal - Integumentary Integumentary: Present: clear, warm, dry - Musculoskeletal Musculoskeletal: gait normal, strength equal bilaterally - Psychiatric Psychiatric: appropriate mood/affect, intact judgment & insight - Neurologic Neurologic: CNII-XII intact, moves all extremities Plan Activity: advance as tolerated Weight Bearing Status: Weight Bear as Tolerated Diet: other (per surgeon's advice) Wound: per your surgeon's advice Follow up with: PRIMARY CARE, [Primary Care Provider] - 3-5 Days CAROL JENNINGS DO [Staff Physician] - 14 Days Prescriptions: oxyCODONE /ACETAMINOPHEN [Percocet 5/325 mg] 2 tab PO Q6H PRN #12 tablet PRN Reason: Pain, Moderate (4-6) <CAROL JENNINGS - Last Filed: 06/27/19 10:23> Providers - Providers Date of Admission: 06/25/19 13:18 Attending physician: LEYDI RIVERA Primary care physician: COLLECT ON DELIVERY CLERK Exam - Constitutional Vitals: Temp Pulse Resp BP Pulse Ox 99.5 F 82 20 106/63 94 06/27/19 07:53 06/27/19 07:53 06/27/19 09:38 06/27/19 07:53 06/27/19 07:53 Plan Activity: other (avoid heavy lifting for the next 2 weeks, no more than 15- 20lbs.) Wound: open to air (may shower with soap and water, pat incisions dry, do not scrub. No baths/hottubs/pools until incisions are healed.) Special Instructions: no heavy lifting Additional Instructions: Call surgeon's office if you have fever >100.4, nausea/vomiting, abdominal pain not controlled by prescription pain medications.
[2019-06-27] MEDS ORDERED: POTASSIUM CHLORIDE 10 MEQ 10 MEQ/100 ML BAG IV ONE ×2 (10:00→12:00)
--- NOTE | 2019-06-27 11:21 | Progress Note ---
Assessment and Plan 38 yo F s/p laparoscopic cholecystectomy, POD 1 Plan: 1. reg diet 2. dc IVF 3. K replacement ordered PO 4. prn PO pain control 5. OOB/ambulate 6. cleared for DC from surgery standpoint - instructed to follow up in surgery clinic in 2 weeks Plan discussed with patient's RN Thank you, please call with questions. Subjective Date of service: 06/27/19 Narrative: Pt seen and examined. No acute complaints. Pain controlled. Patient ambulating. No f/c. No n/v. Tolerating diet. Objective Vital Signs - 12hr 06/26/19 06/27/19 06/27/19 23:17 04:45 07:53 Temperature 98.0 F 99.0 F 99.5 F Pulse Rate 97 H 93 H 82 Respiratory 18 18 20 Rate Blood Pressure 115/65 102/62 106/63 O2 Sat by Pulse 98 95 94 Oximetry 06/27/19 09:38 Temperature Pulse Rate Respiratory 20 Rate Blood Pressure O2 Sat by Pulse Oximetry - General physical appearance Narrative Exam: Gen: AAOx3. NAD CV: s1, S2+ Resp: even and unlabored Abd: soft, NT, ND. incisions c/d/i Ext: no c/c/e - Labs 06/27/19 04:21 06/27/19 04:21 Diabetes panel 06/27/19 Range/Units 04:21 Sodium 137 (137-145) mmol/L Potassium 2.8 L* D (3.6-5.0) mmol/L Chloride 104.2 (98-107) mmol/L Carbon Dioxide 24 (22-30) mmol/L BUN 8 (7-17) mg/dL Creatinine 0.5 L (0.7-1.2) mg/dL Glucose 90 (65-100) mg/dL Calcium 7.5 L (8.4-10.2) mg/dL AST 39 (5-40) units/L ALT 59 H (7-56) units/L Alkaline Phosphatase 57 (35-129) units/L Total Protein 5.6 L (6.3-8.2) g/dL Albumin 2.7 L (3.9-5) g/dL Calcium panel 06/27/19 Range/Units 04:21 Calcium 7.5 L (8.4-10.2) mg/dL Albumin 2.7 L (3.9-5) g/dL Pituitary panel 06/27/19 Range/Units 04:21 Sodium 137 (137-145) mmol/L Potassium 2.8 L* D (3.6-5.0) mmol/L Chloride 104.2 (98-107) mmol/L Carbon Dioxide 24 (22-30) mmol/L BUN 8 (7-17) mg/dL Creatinine 0.5 L (0.7-1.2) mg/dL Glucose 90 (65-100) mg/dL Calcium 7.5 L (8.4-10.2) mg/dL Adrenal panel 06/27/19 Range/Units 04:21 Sodium 137 (137-145) mmol/L Potassium 2.8 L* D (3.6-5.0) mmol/L Chloride 104.2 (98-107) mmol/L Carbon Dioxide 24 (22-30) mmol/L BUN 8 (7-17) mg/dL Creatinine 0.5 L (0.7-1.2) mg/dL Glucose 90 (65-100) mg/dL Calcium 7.5 L (8.4-10.2) mg/dL Total Bilirubin 0.30 (0.1-1.2) mg/dL AST 39 (5-40) units/L ALT 59 H (7-56) units/L Alkaline Phosphatase 57 (35-129) units/L Total Protein 5.6 L (6.3-8.2) g/dL Albumin 2.7 L (3.9-5) g/dL
[2019-06-27 11:40] VITALS: BP 102/63
--- NOTE | 2019-06-27 16:34 | Post Anesthesia Evaluation ---
- Post Anesthesia Evaluation Patient Participated: Yes Airway Patent: Yes Stable Respiratory Function: Yes Nausea/Vomiting: No Temp > 96.8F: Yes Pain Manageable: Yes Adequeate Hydration: Yes Anesthesia Complications: No
== END 2019-06-27 14:24 | disposition home or self-care (01) ==
LOC: ED 06:02 → 4A 13:18
PROVIDERS: ADMIT Internal Medicine; ATTEND Hospitalist
DX: K80.00 Calculus of gallbladder with acute cholecystitis without obstruction (principal); R11.2 Nausea with vomiting, unspecified; A41.9 Sepsis, unspecified organism; E87.6 Hypokalemia; N39.0 Urinary tract infection, site not specified; E87.1 Hypo-osmolality and hyponatremia
CPT/HCPCS: 36415; 47562; 74177; 76700; 80053; 80076; 81001; 83690; 84703; 85025; 85027; 87086; 88304; 96361; 96365; 96366; 96367; 96375; 96376; 99285; A4217; G0378; J0330; J1170; J2250; J2270; J2370; J2405; J2543; J2704; J7030; Q9967; J3480

== ENCOUNTER 2020-02-14 15:02 | Emergency (ER) | payer MEDICAID, SELFPAY ==
[2020-02-14] MEDS ORDERED: ACETAMINOPHEN 325 MG TAB PO ONE (15:11)
[2020-02-14 15:12] VITALS: BP 97/75
--- NOTE | 2020-02-14 15:13 | Event Note ---
ED Screening Note Date of service: 02/14/20 Time: 15:12 ED Screening Note: Patient complains of chest pain, cough, body aches, and headache x1 week Fever 100.1 noted along with tachycardia with heart rate of 109 This initial assessment/diagnostic orders/clinical plan/treatment(s) is/are subject to change based on patients health status, clinical progression and re- assessment by fellow clinical providers in the ED. Further treatment and workup at subsequent clinical providers discretion. Patient/guardian urged not to elope from the ED as their condition may be serious if not clinically assessed and managed. Initial orders include: Labs Chest x-ray Tylenol
[2020-02-14 15:49] LABS: Basophils % (Auto) 0.4 % (0.0-1.8); Eosinophils # (Auto) 0.6 K/mm3 (0.0-0.4); Eosinophils % (Auto) 9.8 % (0.0-4.3); Hematocrit 42.1 % (30.3-42.9); Hemoglobin 14.5 gm/dl (10.1-14.3); Lymphocytes # (Auto) 1.3 K/mm3 (1.2-5.4); Lymphocytes % (Auto) 21.3 % (13.4-35.0); Mean Corpuscular HGB Conc 34 % (30-34); Mean Corpuscular Volume 94 fl (79-97); Monocytes # (Auto) 0.6 K/mm3 (0.0-0.8); Monocytes % (Auto) 10.1 % (0.0-7.3); Platelet Count 156 K/mm3 (140-440); Red Blood Count 4.51 M/mm3 (3.65-5.03); Red Cell Distribution Width 13.4 % (13.2-15.2)
[2020-02-14 16:27] LABS: Alanine Aminotransferase 52 units/L (7-56); Albumin 3.4 g/dL (3.9-5); Blood Urea Nitrogen 9 mg/dL (7-17); Calcium 8.4 mg/dL (8.4-10.2); Hemolysis Index 22
[2020-02-14 16:28] LABS: BUN/Creatinine Ratio 15
--- NOTE | 2020-02-14 17:26 | XRay Report ---
CHEST 2 VIEWS INDICATION / CLINICAL INFORMATION: cough, fever, SOB. COMPARISON: None available. FINDINGS: SUPPORT DEVICES: None. HEART / MEDIASTINUM: No significant abnormality. LUNGS / PLEURA: No significant pulmonary or pleural abnormality. No pneumothorax. ADDITIONAL FINDINGS: No significant additional findings. IMPRESSION: No significant abnormality Signer Name: iNr Torres MD FACR Signed: 02/14/2020 5:22 PM Workstation Name: [id number]
== END 2020-02-14 19:00 | disposition left against medical advice (07) ==
LOC: ED 15:02
DX: R51.9 Headache, unspecified (principal); Z53.21 Procedure and treatment not carried out due to patient leaving prior to being seen by health care provider
CPT/HCPCS: 36415; 71046; 80053; 84484; 84703; 85025